=== PATIENT | male | born 1990 | race Caucasian/White ===

== ENCOUNTER 2016-10-07 22:59 | Emergency (ER) | payer BC ==
[2016-10-07] MEDS ORDERED: Ketorolac 30 MG/ML SDV IVPUSH ONE (23:11)
[2016-10-08 00:02] LABS: CHLORIDE,CL 109 mmol/L (98-110); SODIUM,NA 140 mmol/L (136-146)
--- NOTE | 2016-10-08 00:14 | EDM.PDOC ---
ED HPI RENAL/ - General Chief Complaint: Abdominal Pain Stated Complaint: ABDOMINAL PAIN Time Seen by Provider: 10/07/16 23:15 Source of Information: Reports: Patient History Limitations: Reports: No limitations - History of Present Illness INITIAL COMMENTS - FREE TEXT/NARRATIVE: HISTORY AND PHYSICAL: History of present illness: [] Review of systems: As per history of present illness and below otherwise all systems reviewed and negative. Past medical history: As per history of present illness and as reviewed below otherwise noncontributory. Surgical history: As per history of present illness and as reviewed below otherwise noncontributory. Social history: No reported history of drug or alcohol abuse. Family history: As per history of present illness and as reviewed below otherwise noncontributory. Physical exam: HEENT: Atraumatic, normocephalic, pupils reactive, negative for conjunctival pallor or scleral icterus, mucous membranes moist, throat clear, neck supple, nontender, trachea midline. Lungs: Clear to auscultation, breath sounds equal bilaterally, chest nontender. Heart: S1S2, regular, negative for clicks, rubs, or JVD. Abdomen: Soft, nondistended, nontender. Negative for masses or hepatosplenomegaly. Mild right CVA tenderness. nontender abdomen and pelvis. No left CVA tenderness Pelvis: Stable nontender. Genitourinary: Deferred. Rectal: Deferred. Extremities: Atraumatic, negative for cords or calf pain. Neurovascular unremarkable. Neuro: Awake, alert, oriented. Cranial nerves grossly unremarkable. Cerebellum unremarkable. Motor and sensory unremarkable throughout. Exam nonfocal. Diagnostics: [] Therapeutics: [] Impression: [] Plan: [] Definitive disposition and diagnosis as appropriate pending reevaluation and review of above. - Related Data Allergies/ADRs: Allergies Allergy/AdvReac Type Severity Reaction Status Date / Time No Known Allergies Allergy Verified 03/19/14 11:38 Home Meds: Home Meds . [No Known Home Meds] 03/19/14 [History] Social & Family History - Tobacco Use Smoking Status *Q: Never Smoker Second Hand Smoke Exposure: No - Alcohol Use Days Per Week of Alcohol Use: 1 Number of Drinks Per Day: 2 Total Drinks Per Week: 2 - Recreational Drug Use Recreational Drug Use: Yes Recreational Drug Type: Reports: Cocaine ED ROS GENERAL - Review of Systems Review Of Systems: See Below (Per history of present illness) ED EXAM, RENAL/ - Physical Exam Exam: See Below (Per history of present illness) Course - Vital Signs Text/Narrative:: Signs and symptoms consistent with suspected ureteral colic given patient's colicky pain and inability to get comfortable and benign abdomen however results return with normal urinalysis and negative CT of urinary tract. Patient has cholelithiasis without evidence of cholecystitis. Labs are unremarkable. Patient is comfortable on reexam after anti-inflammatory medication. No further workup or treatment indicated at this time. Patient is aware of critical importance of close followup with surgery to arrange outpatient cholecystectomy at his convenience, and he was given information for followup with Dr. Way he will call morning for an appointment. No further workup or treatment indicated at this time patient and spouse agree with outpatient followup and strict return precautions were given Last Recorded V/S: Last Vital Signs Temp 37.1 C 10/07/16 23:11 Pulse 81 10/07/16 23:11 Resp 18 10/07/16 23:11 BP 143/95 H 10/07/16 23:11 Pulse Ox 99 10/07/16 23:11 - Orders/Labs/Meds Orders: Active Orders 24 hr Category Date Time Status Abdomen Pelvis w wo Cont [CT] Stat Exams 10/07/16 23:12 Taken Labs: Laboratory Tests 10/07/16 10/07/16 10/07/16 Range/Units 23:30 23:30 23:30 WBC 9.34 (4.0-11.0) K/uL RBC 5.02 (4.50-5.90) M/uL Hgb 14.5 (13.0-17.0) g/dL Hct 42.5 (38.0-50.0) % MCV 84.7 (80.0-98.0) fL MCH 28.9 (27.0-32.0) pg MCHC 34.1 (31.0-37.0) g/dL RDW Std Deviation 40.9 (28.0-62.0) fl RDW Coeff of Pham 13 (11.0-15.0) % Plt Count 289 (150-400) K/uL MPV 10.20 (7.40-12.00) fL Neut % (Auto) 49.6 (48.0-80.0) % Lymph % (Auto) 41.3 H (16.0-40.0) % [place] % (Auto) 5.9 (0.0-15.0) % Eos % (Auto) 2.9 (0.0-7.0) % Baso % (Auto) 0.3 (0.0-1.5) % Neut # (Auto) 4.6 (1.4-5.7) K/uL Lymph # (Auto) 3.9 H (0.6-2.4) K/uL [place] # (Auto) 0.6 (0.0-0.8) K/uL Eos # (Auto) 0.3 (0.0-0.7) K/uL Baso # (Auto) 0.0 (0.0-0.1) K/uL Nucleated RBC % 0.0 /100WBC Nucleated RBCs # 0 K/uL Sodium 140 (136-146) mmol/L Potassium 4.1 (3.5-5.1) mmol/L Chloride 109 (98-110) mmol/L Carbon Dioxide 21 (21-31) mmol/L BUN 16 (6.0-23.0) mg/dL Creatinine 1.2 (0.6-1.5) mg/dL Est Cr Clr Drug Dosing 109.54 mL/min Estimated GFR (MDRD) > 60.0 ml/min Glucose 100 (60-110) mg/dL Calcium 9.2 (8.8-10.8) mg/dL Total Bilirubin 0.4 (0.1-1.5) mg/dL AST 32 (5-40) IU/L ALT 41 (8-54) IU/L Alkaline Phosphatase 81 (40-150) Total Protein 7.2 (6.0-8.0) g/dL Albumin 4.3 (3.5-5.0) g/dL Globulin 2.9 (2.0-3.5) g/dL Albumin/Globulin Ratio 1.5 (1.3-2.8) Lipase 25 (7-80) U/L Urine Color YELLOW Urine Appearance CLEAR Urine pH 6.0 (5.0-8.0) Ur Specific [place] 1.015 (1.001-1.035) Urine Protein NEGATIVE (NEGATIVE) mg/dL Urine Glucose (UA) NEGATIVE (NEGATIVE) mg/dL Urine Ketones NEGATIVE (NEGATIVE) mg/dL Urine Occult Blood NEGATIVE (NEGATIVE) Urine Nitrite NEGATIVE (NEGATIVE) Urine Bilirubin NEGATIVE (NEGATIVE) Urine Urobilinogen 0.2 (<2.0) EU/dL Ur Leukocyte Esterase NEGATIVE (NEGATIVE) Urine RBC 0-2 (0-2/HPF) Urine WBC 0-2 (0-5/HPF) Ur Epithelial Cells RARE (NONE-FEW) Urine Bacteria RARE (NEGATIVE) Meds: Medications Discontinued Medications Generic Name Dose Route Start Last Admin Trade Name Brian PRN Reason Stop Dose Admin Iopamidol 100 ml 10/08/16 00:33 10/08/16 00:33 Isovue-370 (76%) IVPUSH 10/08/16 00:34 100 ml ONETIME STA Administration Ketorolac Tromethamine 30 mg 10/07/16 23:11 10/07/16 23:29 Toradol IVPUSH 10/07/16 23:12 30 mg ONETIME ONE Administration Departure - Departure Time of Disposition: 01:14 Disposition: Home, Self-Care 01 Condition: good Clinical Impression: Cholelithiasis, Biliary colic, Abdominal pain Instructions: Abdominal Pain, Adult, [id number] Referrals: PCP,None [Primary Care Provider] - Forms: ED Department Discharge Additional Instructions: Appears that your right upper abdomen and right flank pain was caused by biliary colic today. This means intermittent painful episodes as a result of gallstones. As you do not have signs of infection or inflammation of your gallbladder your pain is well controlled, it is not an emergency to have your gallbladder out. However it is important that you followup with surgery to arrange to have your gallbladder removed promptly as an outpatient at your convenience. Dr. Guardado is her surgeon and we've given you his phone number. : cAll in the morning for followup. Your labs were all normal today. Take Motrin 800 mg every 6 hours and Tylenol as needed for pain.: 9 AM for an appointment tomorrow with Dr. Guardado. Return immediately for new severe or worsening symptoms especially for worsening right upper quadrant pain with fever. - My Orders Last 24 Hours: My Active Orders 10/07/16 23:12 Abdomen Pelvis w wo Cont [CT] Stat - Assessment/Plan Last 24 Hours: My Active Orders 10/07/16 23:12 Abdomen Pelvis w wo Cont [CT] Stat
[2016-10-08] MEDS ORDERED: Iopamidol 755 Mg/ML 100 ML Bottle IVPUSH STA (00:33)
[2016-10-08 01:33] VITALS: BP 122/78
--- NOTE | 2016-10-08 14:35 | CT ---
EXAM DATE: 10/07/16 PATIENT'S AGE: 26 Patient: DAMIAN LOVELACE Facility: [place], [place] Site . Site : 1990 Study: CT Abdomen/Pelvis W/ and W/O Cont [id number]/24/2017 12:36:27 AM Ordering Physician: Kin Lu Final Report: INDICATION: RUQ PAIN TECHNIQUE: CT abdomen and pelvis acquired without and with IV contrast. COMPARISON: February 15, 2016. FINDINGS: Lower chest: Unremarkable. Liver: Mild diffuse fatty infiltration. Spleen: Unremarkable. Pancreas: Unremarkable. Gallbladder and bile ducts: Cholelithiasis. Kidneys: Unremarkable. Adrenal glands: Unremarkable. GI tract: Unremarkable. Appendix is normal. Vascular structures: Negative. No sign of aneurysm. Lymph nodes: Unremarkable. Miscellaneous: Unremarkable. No free air or significant free fluid. Pelvic Organs: Unremarkable. Bones: Unremarkable for age. IMPRESSION: 1. No acute abnormality of the abdomen and pelvis. 2. Cholelithiasis. 3. Mild diffuse fatty infiltration of the liver. Dictated by Tristian Candelario MD @ 10/08/2016 1:06:54 AM Dictated by: Tristian Candelario MD @ 10/08/2016 01:07:45 (Electronic Signature) Report Signed by Proxy and Original Signed Document filed in the Medical Record. MTDD
== END 2016-10-08 01:33 | disposition home or self-care (01) ==
LOC: MW.ED 22:59
DX: K80.70 Calculus of gallbladder and bile duct without cholecystitis without obstruction (principal)
CPT/HCPCS: 36415; 74178; 80053; 81001; 83690; 85025; 96374; 99284; J1885; Q9967; 99283

== ENCOUNTER 2016-10-09 00:52 | Emergency (ER) | payer BC ==
[2016-10-09 01:04] VITALS: BP 167/98
[2016-10-09] MEDS ORDERED: Ketorolac 30 MG/ML SDV IVPUSH ONE (01:13)
[2016-10-09] MEDS ORDERED: Ondansetron 4 MG/2 ML SDV IVPUSH ONE (01:13)
[2016-10-09] MEDS ORDERED: Sodium Chloride 0.9% 1,000 ML IV SCH (01:15)
[2016-10-09 02:43] LABS: CHLORIDE,CL 112 mmol/L (98-110); SODIUM,NA 143 mmol/L (136-146)
--- NOTE | 2016-10-09 02:44 | EDM.PDOC ---
ED HPI GENERAL MEDICAL PROBLEM - General Chief Complaint: Abdominal Pain Stated Complaint: ABDOMINAL PAIN Time Seen by Provider: 10/09/16 02:36 - History of Present Illness INITIAL COMMENTS - FREE TEXT/NARRATIVE: HISTORY AND PHYSICAL: History of present illness: This 26-year-old male history cholelithiasis and presents with concern of biliary colic he had no vomiting no diarrhea no fever chills or other complaints he was seen one day prior and his pain has been controlled until now with anti-inflammatory medication Review of systems: As per history of present illness and below otherwise all systems reviewed and negative. Past medical history: As per history of present illness and as reviewed below otherwise noncontributory. Surgical history: As per history of present illness and as reviewed below otherwise noncontributory. Social history: No reported history of drug or alcohol abuse. Family history: As per history of present illness and as reviewed below otherwise noncontributory. Physical exam: HEENT: Atraumatic, normocephalic, pupils reactive, negative for conjunctival pallor or scleral icterus, mucous membranes moist, throat clear, neck supple, nontender, trachea midline. Lungs: Clear to auscultation, breath sounds equal bilaterally, chest nontender. Heart: S1S2, regular, negative for clicks, rubs, or JVD. Abdomen: Soft, nondistended, mild tenderness right upper quadrant no rebound no guarding. Negative for masses or hepatosplenomegaly. Negative for costovertebral tenderness. Pelvis: Stable nontender. Genitourinary: Deferred. Rectal: Deferred. Extremities: Atraumatic, negative for cords or calf pain. Neurovascular unremarkable. Neuro: Awake, alert, oriented. Cranial nerves II through XII unremarkable. Cerebellum unremarkable. Motor and sensory unremarkable throughout. Exam nonfocal. Diagnostics: CBC CMP ultrasound of the gallbladder Therapeutics: Normal saline Toradol 30 mg IV Impression: #1 cholelithiasis with biliary colic Definitive disposition and diagnosis as appropriate pending reevaluation and review of above. abdomen Pain Score (Numeric/FACES): 6 - Related Data Allergies Allergy/AdvReac Type Severity Reaction Status Date / Time No Known Allergies Allergy Verified 10/09/16 01:01 Home Meds: Home Meds . [No Known Home Meds] 03/19/14 [History] Past Medical History Musculoskeletal History: Reports: Other (see below) Other Musculoskeletal History: L ACL injury - Past Surgical History Musculoskeletal Surgical History: Reports: Other (see below) Other Musculoskeletal Surgeries/Procedures:: L ACL repair Social & Family History - Tobacco Use Smoking Status *Q: Never Smoker Second Hand Smoke Exposure: No - Caffeine Use Caffeine Use: Reports: None - Alcohol Use Days Per Week of Alcohol Use: 1 Number of Drinks Per Day: 2 Total Drinks Per Week: 2 - Recreational Drug Use Recreational Drug Use: No Recreational Drug Type: Reports: Cocaine ED ROS GENERAL - Review of Systems Review Of Systems: ROS reveals no pertinent complaints other than HPI. ED EXAM, GENERAL - Physical Exam Exam: See Below (See dictation) Course - Vital Signs Last Recorded V/S: Last Vital Signs Temp 36.1 C 10/09/16 01:01 Pulse 85 10/09/16 01:01 Resp 20 10/09/16 01:01 BP 167/98 H 10/09/16 01:01 Pulse Ox 97 10/09/16 01:01 - Orders/Labs/Meds Orders: Active Orders 24 hr Category Date Time Status Abdomen Ltd [US] Stat Exams 10/09/16 01:11 Taken COMPREHENSIVE METABOLIC PN,CMP [CHEM] Stat Lab 10/09/16 02:10 Received Sodium Chloride 0.9% [Normal Saline] 1,000 ml Med 10/09/16 01:15 Active IV STAT Medication Orders Sodium Chloride (Normal Saline) 1,000 mls @ 999 mls/hr IV STAT RANDY Last Admin: 10/09/16 02:06 Dose: 999 mls/hr Labs: Laboratory Tests 10/09/16 Range/Units 01:35 WBC 8.64 (4.0-11.0) K/uL RBC 4.95 (4.50-5.90) M/uL Hgb 14.2 (13.0-17.0) g/dL Hct 42.4 (38.0-50.0) % MCV 85.7 (80.0-98.0) fL MCH 28.7 (27.0-32.0) pg MCHC 33.5 (31.0-37.0) g/dL RDW Std Deviation 41.7 (28.0-62.0) fl RDW Coeff of Pham 14 (11.0-15.0) % Plt Count 283 (150-400) K/uL MPV 10.70 (7.40-12.00) fL Neut % (Auto) 57.0 (48.0-80.0) % Lymph % (Auto) 33.2 (16.0-40.0) % [place] % (Auto) 6.7 (0.0-15.0) % Eos % (Auto) 2.9 (0.0-7.0) % Baso % (Auto) 0.2 (0.0-1.5) % Neut # (Auto) 4.9 (1.4-5.7) K/uL Lymph # (Auto) 2.9 H (0.6-2.4) K/uL [place] # (Auto) 0.6 (0.0-0.8) K/uL Eos # (Auto) 0.3 (0.0-0.7) K/uL Baso # (Auto) 0.0 (0.0-0.1) K/uL Nucleated RBC % 0.0 /100WBC Nucleated RBCs # 0 K/uL Meds: Medications Generic Name Dose Route Start Last Admin Trade Name Freq PRN Reason Stop Dose Admin Sodium Chloride 1,000 mls @ 999 mls/hr 10/09/16 01:15 10/09/16 02:06 Normal Saline IV 999 mls/hr STAT RANDY Administration Discontinued Medications Generic Name Dose Route Start Last Admin Trade Name Freq PRN Reason Stop Dose Admin Ketorolac Tromethamine 30 mg 10/09/16 01:13 10/09/16 02:06 Toradol IVPUSH 10/09/16 01:14 30 mg ONETIME ONE Administration Ondansetron HCl 4 mg 10/09/16 01:13 10/09/16 02:07 Zofran IVPUSH 10/09/16 01:14 4 mg ONETIME ONE Administration Departure - Departure Time of Disposition: 02:43 Disposition: Home, Self-Care 01 Condition: good Clinical Impression: Cholelithiasis, Biliary colic Forms: ED Department Discharge Additional Instructions: The following information is given to patients seen in the emergency department who are being discharged to home. This information is to outline your options for follow-up care. We provide all patients seen in our emergency department with a follow-up referral. The need for follow-up, as well as the timing and circumstances, are variable depending upon the specifics of your emergency department visit. If you don't have a primary care physician on staff, we will provide you with a referral. We always advise you to contact your personal physician following an emergency department visit to inform them of the circumstance of the visit and for follow-up with them and/or the need for any referrals to a consulting specialist. The emergency department will also refer you to a specialist when appropriate. This referral assures that you have the opportunity for followup care with a specialist. All of these measure are taken in an effort to provide you with optimal care, which includes your followup. Under all circumstances we always encourage you to contact your private physician who remains a resource for coordinating your care. When calling for followup care, please make the office aware that this follow-up is from your recent emergency room visit. If for any reason you are refused follow-up, please contact the [facility] emergency department at and asked to speak to the emergency department charge nurse. Hydrocodone as prescribed Zofran as directed push fluids followup Gen. surgery as discussed return as needed as discussed - My Orders Last 24 Hours: My Active Orders 10/09/16 01:11 Abdomen Ltd [US] Stat 10/09/16 01:15 Sodium Chloride 0.9% [Normal Saline] 1,000 ml IV STAT 10/09/16 02:10 COMPREHENSIVE METABOLIC PN,CMP [CHEM] Stat - Assessment/Plan Last 24 Hours: My Active Orders 10/09/16 01:11 Abdomen Ltd [US] Stat 10/09/16 01:15 Sodium Chloride 0.9% [Normal Saline] 1,000 ml IV STAT 10/09/16 02:10 COMPREHENSIVE METABOLIC PN,CMP [CHEM] Stat
--- NOTE | 2016-10-11 16:39 | US ---
MEXAM DATE: 10/09/16 PATIENT'S AGE: 26 Patient: DAMIAN LOVELACE Facility: [place], [place] Site . Site : 1990 Study: US Abdomen [id number]/09/2016 2:07:31 AM Ordering Physician: Doctor Herrera Final Report: INDICATION: Right upper quadrant pain. TECHNIQUE: Ultrasound abdomen limited. Sonographic images of the right upper quadrant were obtained using louis-scale and color Doppler images. COMPARISON: CT abdomen and pelvis October 07, 2016. FINDINGS: Liver: Elevated echotexture. No focal lesion. Gallbladder: Shadowing mobile stone in the gallbladder. No gallbladder wall thickening or pericholecystic fluid. Common bile duct: 4 mm. Pancreas: Unremarkable as imaged. Right kidney: 11.6 cm in length. Normal echotexture and cortex. No masses, stones, or hydronephrosis. No free fluid demonstrated. IMPRESSION: Cholelithiasis. No ultrasound evidence of cholecystitis. Fatty change of the liver. Dictated by Pop Crowley MD @ 10/09/2016 2:23:58 AM Dictated by: Pop Crowley MD @ 10/09/2016 02:24:09 (Electronic Signature) Report Signed by Proxy and Original Signed Document filed in the Medical Record. MTDD
== END 2016-10-09 02:55 | disposition home or self-care (01) ==
LOC: MW.ED 00:52
DX: K80.70 Calculus of gallbladder and bile duct without cholecystitis without obstruction (principal); Z98.890 Other specified postprocedural states
CPT/HCPCS: 76705; 80053; 85025; 96361; 96374; 96375; 99284; J1885; J2405; J7040